=== PATIENT | male | born 1985 | race African-American/Black ===

== ENCOUNTER 2016-07-09 12:24 | Emergency (ER) | payer SELFPAY ==
[~2016-07-09] VITALS: Ht 188 cm; Wt 95.0 kg
[~2016-07-09 12:24] MED LIST: ERYTOIN10 EACH EYE; IBUP-232 PO
[2016-07-09 12:27] VITALS: BP 115/64; PULSE 87; RESP 12; TEMP 97.6; O2SAT 98
--- NOTE | 2016-07-09 14:40 | PD ---
HPI Chief Complaint: Cold / Flu Symptoms Time Seen by Provider: 14:40 Travel History International Travel<30 days: No Contact w/Intl Traveler<30days: No Traveled to known affect area: No History of Present Illness HPI 31-year-old male presents to the emergency department with complaint of nasal congestion, cough, sore throat, body ache since yesterday. Reports feeling feverish but cannot report a MAXIMUM TEMPERATURE because he has not taken his temperature. Reports ear pressure and facial pressure. Denies unusual joint, lump in throat, difficulty swallowing. Reports painful swallowing. Denies nausea, vomiting. Denies chest pain, shortness of breath, abdominal pain. Reports pain in his left mid back when he breathes in and out; worse when he breathes in. Reports wheezing. Has history of asthma. Has not used an inhaler because he doesn't have one. Took DayQuil with no relief of symptoms. Has not tried any other treatments or medications to alleviate his symptoms. No one else with similar symptoms. Not receive influenza vaccine. No known allergies. History of asthma. No other modifying factors or associated signs and symptoms. PFSH Past Medical History Asthma: Yes Diminished Hearing: No Immune Disorder: Yes (04/02/08 HIV+) Respiratory: Yes (ASTHMA) Social History Alcohol Use: Yes (MAYBE ONCE A MONTH) Tobacco Use: Yes (<1 PPD) Substance Use: No Allergies-Medications (Allergen,Severity, Reaction): Coded Allergies: No Known Allergies (Verified , 06/10/16) Reported Meds & Prescriptions Reported Meds & Active Scripts Active Ibuprofen 600 Mg Tab 600 Mg PO Q8HR PRN Erythromycin Opth Oint 5 Mg/Gm Oint 1 Applic EACH EYE QID Review of Systems Except as stated in HPI: all other systems reviewed are Neg Physical Exam Narrative GENERAL: Well-nourished, well-developed male patient, in no acute distress; afebrile, nontoxic-appearing SKIN: Warm and dry. No rash. HEAD: Atraumatic. Normocephalic. EYES: Pupils equal and round at 3 mm with brisk reaction. No scleral icterus. No injection or drainage. PERRLA. ENT: Mucosa pink and moist. Oropharynx with erythema and 2+ tonsillar edema; without exudates. No uvular edema. No uvular, palatal, or tonsillar deviation. Airway patent. EARS: Bilateral pinnae and external canals appear within normal limits. Bilateral tympanic membranes without erythema, dullness or perforation. NECK: Trachea midline. No lymphadenopathy. CARDIOVASCULAR: Regular rate and rhythm. No murmur appreciated. RESPIRATORY: No accessory muscle use. Clear to auscultation. Breath sounds equal bilaterally. No wheezing on auscultation of bilateral lung lujan. No audible wheezing. No retractions or tachypnea. GASTROINTESTINAL: Abdomen soft, non-tender, nondistended. Hepatic and splenic margins not palpable. Bowel sounds are active 4 quadrants. MUSCULOSKELETAL: No obvious deformities. No clubbing. No cyanosis. No edema. NEUROLOGICAL: Awake and alert. Oriented 3. No obvious cranial nerve deficits. Motor grossly within normal limits. Normal speech. Moves all extremities. 5/5 strength to all extremities. PSYCHIATRIC: Appropriate mood and affect; insight and judgment normal. Data Data Last Documented VS Vital Signs Date Time Temp Pulse Resp B/P Pulse Ox O2 Delivery O2 Flow Rate FiO2 07/09/16 12:27 97.6 87 12 115/64 98 Room Air Orders Influenzae A/B Antigen (07/09/16 14:40) Group A Rapid Strep Screen (07/09/16 14:40) Ibuprofen (Motrin) (07/09/16 14:45) Chest, Single Ap (07/09/16 14:40) Strep Culture (Group A) (07/09/16 15:20) MDM Medical Decision Making Medical Screen Exam Complete: Yes Emergency Medical Condition: Yes Medical Record Reviewed: Yes Differential Diagnosis Viral illness, influenza, strep pharyngitis, asthma exacerbation Narrative Course 31-year-old male with, history of asthma, with cold and flu symptoms since yesterday. Afebrile and nontoxic appearing. No wheezing on auscultation of the lung sounds bilaterally. Lung sounds are clear and equal throughout. He is in no acute distress and without retractions or tachypnea. Oxygen saturation 98% on room air. He does report a pain in his left mid back worse on inspiration. He says he's been feeling feverish at home With a MAXIMUM TEMPERATURE. Has sore throat with erythema and edema; without exudate. Influenza, rapid strep, chest x-ray ordered. Ibuprofen ordered. 1509: Chest x-ray with no acute disease. 1617: Rapid strep negative. Influenza negative. Discussed viral illness and symptomatic management with patient. Nasonex nasal spray, Magic mouthwash, ibuprofen prescribed for home. Provided patient with prescription for pro-air inhaler, secondary to history of asthma, not having an inhaler available. Patient is medically cleared and stable for discharge. Discussed reasons to return to the emergency department. Instructed patient to follow up with primary care provider. Patient agrees with treatment plan. The patients vital signs are stable and the patient is stable for outpatient follow-up and treatment. Patient discharged home, stable and in no acute distress. Diagnosis Primary Impression: Viral illness Referrals: Primary Care Physician Patient Instructions: Cold Symptoms (ED), General Instructions, Safe Use of Cough and Cold Medicines (ED) Departure Forms: Tests/Procedures, Work Release Enter return to work date: Jul 11, 2016 Additional Instructions: Ibuprofen or Tylenol as directed and as needed to reduce fever; may alternate ibuprofen and Tylenol as needed every 3 hours to minimize fever Get plenty of sleep/rest Drink plenty of fluids to prevent dehydration [place] diet to encourage nutrition such as crackers, fruit, applesauce, toast, soup etc. Use an air humidifier/turn off ceiling fans Follow-up with your primary care provider within 1 day Return immediately to the emergency department with worsening of symptoms Med/Other Pt SpecificInfo: Prescription(s) given Scripts Albuterol 8.5 GM Inh (Proair Hfa 8.5 GM Inh)90 Mcg/Act Aer2 Puff INH Q4-6H PRN ( SOB/WHEEZING) #1 INHALER Ref 0 108 mcg/actuation Prov:Marisol Tracey 07/09/16 Mometasone Nasal Carson (Nasonex Nasal Carson)50 Mcg/Act Naspr2 Carson EACH NARE DAILY PRN (NASAL CONGESTION) #1 BOTTLE Ref 0 Prov:Marisol Tracey NETWORK PROFESSIONAL 07/09/16 Ibuprofen 800 Mg [id number] Mg PO Q6HR PRN (PAIN) #30 TAB Ref 0 Prov:Marisol Tracey NETWORK PROFESSIONAL 07/09/16 Uwgjgsjb-Fglrxyifpegocad-Kadjkrazd Liq (Magic Mouthwash Adult Liq)120 Ml Susp5 Ml SWISH-SPIT Q3HR PRN (SORE THROAT) #120 ML Ref 0 Each 5mL contains: Nystatin 200,000units, Diphenhydramine 4.25mg, Viscous Lidocaine 10mg, Kramer syrup 0.8 mL Prov:Marisol Tracey 07/09/16 Disposition: 01 DISCHARGE HOME Condition: Stable Marisol Tracey Jul 09, 2016 14:40
[2016-07-09] MEDS ORDERED: IBUPROFEN 800 MG TAB PO ONE (14:45)
--- NOTE | 2016-07-09 15:04 | RADRPT ---
EXAM DATE/TIME: 07/09/2016 14:38 [facility] COMPARISON: No previous studies available for comparison. INDICATIONS : Cough, flu like symptoms MEDICAL HISTORY : None. SURGICAL HISTORY : None. ENCOUNTER: Initial ACUITY: 1 day PAIN SCORE: 2/10 LOCATION: Bilateral chest FINDINGS: A single view of the chest demonstrates the lungs to be symmetrically aerated without evidence of mas s, infiltrate or effusion. The cardiomediastinal contours are unremarkable. Osseous structures are intact. CONCLUSION: No acute disease. Adiel Easton MD FACR on July 09, 2016 at 15:02 Board Certified Radiologist. This report was verified electronically.
[2016-07-09] MEDS ORDERED: IBUP800T23 PO (16:18)
[2016-07-09] MEDS ORDERED: MAGICADU2 SWISH-SPIT (16:18)
[2016-07-09] MEDS ORDERED: MOME17I EACH NARE (16:18)
[2016-07-09] MEDS ORDERED: ALBUAER3 INH (16:19)
== END 2016-07-09 16:26 | disposition home or self-care (01) ==
LOC: NEPB 12:24
DX: B34.9 Viral infection, unspecified (principal); R05 Cough; R07.0 Pain in throat; M79.1 Myalgia; R13.10 Dysphagia, unspecified; M54.6 Pain in thoracic spine; F17.200 Nicotine dependence, unspecified, uncomplicated; Z21 Asymptomatic human immunodeficiency virus [HIV] infection status; Z87.09 Personal history of other diseases of the respiratory system
CPT/HCPCS: 71010; 87081; 87804; 87880; 99283